=== PATIENT | male | born 1995 | race Caucasian/White ===

== ENCOUNTER 2025-05-21 10:48 | Emergency (ER) | payer OTHER, SELFPAY ==
[2025-05-21 10:49] VITALS: BMI 26.2
[2025-05-21 11:25] VITALS: BP 142/96; PULSE 69; RESP 19; TEMP 36.8; O2SAT 98
--- NOTE | 2025-05-21 11:32 | XR_ITS ---
Examination: Tibia-Fibula, left , 2 views Technique: Tibia-fibula AP lateral 2 views Date and time of exam: 2024, 1159 hrs. Indications: Dog bite today injury to lower leg, lower leg pain. Findings: No fracture. No cortical bone destruction. No opaque foreign body Impression: No opaque foreign body
--- NOTE | 2025-05-21 11:34 | PD.EDLOWEX ---
Lower Extremity Injury RME/HPI General Chief Complaint: Extremity Injury, Lower Stated Complaint: DOG BITE AT WORK YESTERAY Time Seen by Provider: 05/21/25 11:31 Source: patient Arrival date/time: 05/21/25 10:48 Mode of arrival: ambulatory Limitations: no limitations RME / HPI RME / HPI Narrative: Patient presents with left calf pain after having been bit by a dog yesterday. The dog was on a leash, was walking by the the patient and bit his calf. Immediately let go. Patient washed the wound out. For the patient, he spoke to the dog's parts counter representative, and the dog is vaccinated against rabies. The dog was taken to the animal assisted. Patient spoke to the nurse that is company and was advised to come to the emergency department for a tetanus vaccine. Related Data Previous Rx's ?Medication ?Instructions ?Recorded amoxicillin 875 mg-potassium 1 tab PO Q12H #10 tabs 05/21/25 clavulanate 125 mg tablet Allergies Allergy/AdvReac Type Severity Reaction Status Date / Time No Known Allergies Allergy Verified 05/21/25 10:51 ED Exam General Limitations: Present no limitations ENT ENT exam: Present normal exam, normal oropharynx and mucous membranes moist Chest Chest inspection: Present normal inspection and symmetric chest wall rise Respiratory Respiratory exam: Present normal lung sounds bilaterally; Absent respiratory distress, wheezes or stridor Cardiovascular Cardiovascular exam: Present regular rate and normal rhythm Abdominal Exam Abdominal exam: Present soft; Absent distention, tenderness, guarding or rebound Extremities Exam Extremities exam: Present other (left calf with 2 puncture wounds ~2mm each, no bleeding, no purulence no surrounding erythema, no foreign body ) Neurological Exam Neurological exam: Present alert, oriented X3, CN II-XII intact and normal gait Psychiatric Psychiatric exam: Present normal affect and normal mood Skin Skin exam: Present warm and dry Course Quality Measures none Orders Category Date Time Status XR tibia fibula LT 2V Stat Exams 05/21/25 11:32 Completed Amoxicillin/Pot Clav 875 [Augmentin 875] Med 05/21/25 11:32 Discontinued 1 tab PO X1 ONE TET,DIP/PERT AC (Adult)-Tdap [Boostrix Adult (Tdap) Med 05/21/25 11:32 Discontinued Vacc] 0.5 ml IMI .ONCE ONE Vital Signs Vital signs: Vital Signs Temperature 98.2 F 05/21/25 11:25 Pulse Rate 69 05/21/25 11:25 Respiratory Rate 19 05/21/25 11:25 Blood Pressure 142/96 H 05/21/25 11:25 Pulse Oximetry (%) 98 05/21/25 11:25 Oxygen Delivery Method Room Air 05/21/25 11:25 Extremity Injury, Lower MDM Narrative MDM Narrative:: I explained risk benefits of rabies vaccination with the patient, and after thorough discussion, patient declined rabies vaccination at this time. Would like to move forward with Tdap booster, x-ray of the left lower extremity as well as antibiotics. xray w/o fracture nor foreign body. Patient data External records reviewed:: [facility] previous records Clinical information provided by:: patient Social determinants that could affect healthcare access:: none Patient has the following chronic illnesses:: none How is presenting disease/condition affected by chronic disease/condition?: no chronic disease Evaluation data The following diagnostics were reviewed and interpreted by me:: radiology exam(s) Lab and/or radiology exams considered but not ordered:: none Interpretation Summary: see above Medications / Prescriptions Medications or Prescriptions considered but not ordered:: none Medication administrations:: Medication Administration History Discontinued Medications Amoxicillin/Clavulanate Potassium (Amoxicillin/Pot Clav 875 Tablet) 1 tab PO X1 ONE Stop: 05/21/25 11:33 Last Admin: 05/21/25 11:46 Dose: 1 tab Documented By: Diphtheria/Tetanus/Acell Pertussis (Diphth,Pertuss(Acell),Tet Vac 0.5 Ml Syr- Adult) 0.5 ml IMi .ONCE ONE Stop: 05/21/25 11:33 Last Admin: 05/21/25 11:48 Dose: 0.5 ml Documented By: see above Consultations Consultation(s) initiated? (list below): No Diagnosis Extremity Injury, Lower Differential Diagnosis: other (fracture, foreign body, laceration) Most likely diagnosis given after review of the tests above:: puncture wound left leg Admission Indicated Admission indicated?: not indicated Admission Request Was there a request for admission?: No Disposition Plan Disposition Plan: Discharge Discharge Attestation Discharge Attestation: The patient and all family members were given an opportunity to ask questions and understood the discharge instructions. Discharge instructions specifically effects, indications for sooner follow up or return to the emergency department, and the expected course of current diagnosis. Patient condition: Stable Discharge Plan Plan Patient Disposition: HOME (Self Care) Prescriptions/Referrals Prescriptions/Med Rec: New amoxicillin-pot clavulanate 875-125 mg tablet 1 tab PO Q12H Qty: 10 0RF Problem List Clinical Impression: Dog bite Patient/Caregiver Discharge Instructions Additional Instructions: Please take antibiotics as prescribed. If despite being antibiotics you develop redness, swelling, discharge, worsening Pain please return to the emergency room immediately for further evaluation Print Language: Maori Stand Alone Forms: [facility] Award Info., Patient Portal Info Letter
[2025-05-21] MEDS: AMOXICILLIN/POT CLAV 875 TABLET 1 TAB PO (11:46)
[2025-05-21] MEDS: DIPHTH,PERTUSS(ACELL),TET VAC 0.5 ML SYR- ADULT IMi (11:48)
[2025-05-21 14:12] VITALS: BP 126/68; PULSE 58; RESP 17; TEMP 36.6; O2SAT 58
== END 2025-05-21 14:45 | disposition home or self-care (01) ==
PROVIDERS: Emergency Provider Emergency Medicine
DX: S81.852A Open bite, left lower leg, initial encounter (principal); W54.0XXA Bitten by dog, initial encounter; Z23 Encounter for immunization
CPT/HCPCS: 73590; 90471; 90715; 99282; A9270